=== PATIENT | male | born 1970 | race Caucasian/White ===

== ENCOUNTER 2017-01-22 08:20 | Day surgery (SDC) | payer OTHER ==
--- NOTE | 2017-01-17 14:35 | HISTORY AND PHYSICAL E ---
History and Physical NAME: BRADFORD GILL : 1970 AGE: 47Y ADMITTED: 01/22/2017 ROOM: HISTORY: The patient presented with abdominal pain, history of hiatus hernia. The patient admitted for upper endoscopy. PAST SURGICAL HISTORY: The patient has a history of right shoulder surgery, right knee and right hand. He did have colonoscopy in 1999 for anemia and bleeding which was negative. REVIEW OF SYSTEMS: CARDIAC: Negative. RESPIRATORY: Negative. ENDOCRINE: Negative. GASTROINTESTINAL: Abdominal pain. ONCOLOGY/HEMATOLOGY: Anemia. FAMILY HISTORY: Father is alive. Mom is alive, she had CVA. PHYSICAL EXAMINATION: VITAL SIGNS: Blood pressure 120/80, pulse 80, respirations 18, temperature is 98. HEAD, EYES, EARS, NOSE AND THROAT: Normal. NECK: Neck is supple. LUNGS: Clear. ABDOMEN: Soft. NEUROLOGICAL: Exam negative. SOCIAL HISTORY: . Does not smoke. Drinks rarely. The patient was seen in the past and he did have upper GI showing small hiatus hernia and free flowing reflux. Patient endoscopy shows no H. pylori. He did have esophagitis, gastritis, duodenitis. Now, the patient has exacerbation of reflux. He has stopped taking his PPI. PLAN: We will proceed with gallbladder ultrasound and upper endoscopy and the patient was given renewal of Protonix. Gastroesophageal reflux, abdominal pain, hiatus hernia, rule out gallbladder disease. DICTATING PHYSICIAN: BROCK GARRISON M.D. [id number] PHY#: [id number] ID: [id number] JOB#: [id number] ACCT: [id number] cc:[facility] BROCK GARRISON M.D. >
[~2017-01-22 08:20] MED LIST: EPINEPHRINE INJ 1 MG/10 ML DISP.SYRIN ONE; FENTANYL CITRATE INJ/PF 100 MCG/2 ML AMPUL ONE; FLUMAZENIL INJ 0.5 MG/5 ML VIAL IV ONE; GLYCOPYRROLATE INJ 0.4 MG/2 ML VIAL ONE; NALOXONE HCL INJ/PF 0.4 MG/1 ML SDV ONE; ONDANSETRON HCL INJ/PF 4 MG/2 ML SDV ONE
[2017-01-22] MEDS: MIDAZOLAM 2 MG/2 ML INJ ONE ×2 (08:55→09:00)
[2017-01-22 10:06] LABS: ABSOLUTE BASOPHILS # (AUTO) 0.1 10^3/uL (0.0-0.2); ABSOLUTE EOSINOPHILS # (AUTO) 0.2 10^3/uL (0.0-0.6); ABSOLUTE LYMPHOCYTES (AUTO) 1.5 10^3/uL (0.5-4.7); ABSOLUTE MONOCYTES (AUTO) 0.5 10^3/uL (0.1-1.4); ABSOLUTE NEUT (AUTO) 2.9 10^3/uL (1.7-8.2); BASOPHILS % (AUTO) 1.6 % (0-2); EOSINOPHILS % (AUTO) 3.5 % (0-6); HEMATOCRIT 34.4 % (37.9-51.0); HGB HCT DIFFERENCE -1.4; LYMPHOCYTES % (AUTO) 29.5 % (13-45); MEAN CORPUSCULAR HEMOGLOBIN 22.1 pg (27.0-33.4); MEAN CORPUSCULAR VOLUME 69 fl (80-97); MONOCYTES % (AUTO) 9.4 % (3-13); RED BLOOD COUNT 4.97 10^6/uL (4.35-5.55); RED CELL DISTRIBUTION WIDTH 15.4 % (11.5-14.0); WHITE BLOOD COUNT 5.2 10^3/uL (4.0-10.5)
[2017-01-22 10:13] VITALS: BP 105/59
[2017-01-22 10:34] LABS: ALANINE AMINOTRANSFERASE 38 U/L (21-72); ALBUMIN 3.7 g/dL (3.5-5.0); ALKALINE PHOSPHATASE 44 U/L (38-126); ANION GAP 7 (5-19); ASPARTATE AMINO TRANSFERASE 33 U/L (17-59); BILIRUBIN,DIRECT 0.3 mg/dL (0.0-0.4); BILIRUBIN,TOTAL 0.9 mg/dL (0.2-1.3); BLOOD UREA NITROGEN 13 mg/dL (7-20); CALCIUM 8.9 mg/dL (8.4-10.2); CARBON DIOXIDE 25 mmol/L (22-30); CHLORIDE 105 mmol/L (98-107); CREATININE RESULT 0.75 mg/dL (0.52-1.25); GLUCOSE 126 mg/dL (75-110); POTASSIUM 4.2 mmol/L (3.6-5.0); SODIUM 137.4 mmol/L (137-145); TOTAL PROTEIN 6.5 g/dL (6.3-8.2)
--- NOTE | 2017-01-22 11:54 | DISCHARGE SUMMARY E ---
Discharge Summary NAME: BRADFORD GILL : 1970 AGE: 47Y ADMITTED: 01/22/2017 DISCHARGED: 01/22/2017 01/22/2017 SUMMARY: This 47-year-old young male presented with exacerbation of reflux. The patient's upper endoscopy shows inlet patches consistent with reflux, some mild erythema over the vocal cords, and the GE junction at 38 cm with no stricture and mild esophagitis, mild gastritis, mild duodenitis. DISCHARGE PLAN: The patient is to continue low-fat diet, avoid food 3 hours prior to bedtime, elevate the head of the bed 6 inches. I am going to repeat his CBC. Continue Protonix. The patient is to see us in the office in the next few days. I will obtain chem profile as well to evaluate the liver functions. DICTATING PHYSICIAN: BROCK GARRISON M.D. [id number] PHY#: [id number] ID: [id number] JOB#: [id number] ACCT: [id number] cc:[facility] BROCK MÉNDEZ M.D. >
--- NOTE | 2017-01-22 11:55 | OPERATIVE REPORT E ---
Operative Report NAME: BRADFORD GILL : 1970 AGE: 47Y DATE OF SURGERY: 01/22/2017 ROOM: PREOPERATIVE DIAGNOSIS: Exacerbation of gastroesophageal reflux disease. POSTOPERATIVE DIAGNOSES: 1. Esophagitis, mild. 2. Gastritis, mild. 3. Duodenitis, mild. PROCEDURE: Esophagoscopy, gastroscopy, duodenoscopy. SURGEON: BROCK GARRISON M.D. ANESTHESIA: Versed 3 mg and Fentanyl 100 mcg. TISSUE REMOVED OR ALTERED: Gastric biopsy for H. pylori. DESCRIPTION OF PROCEDURE: The baby scope passed under guided vision with no difficulty. Esophagoscopy: Junction at 38 cm. Mild esophagitis. No stricture. The distal esophagus showed some mild erythema with no stricture, no malignancy. Gastroscopy: Mild gastritis, biopsy obtained. Duodenoscopy: Mild duodenitis. No ulcers. The scope was withdrawn from duodenum into the stomach. The cardia and the fundus were visualized in retroflexed position and show no abnormalities. The distal esophagus again shows some esophagitis. There was superficial inlet lesions in the proximal esophagus consistent with reflux. There was mild erythema over the vocal cords consistent with reflux. The inlet patches and the vocal cord erythema are consistent with esophagitis and reflux. The patient tolerated the procedure well and was discharged to his room in stable condition. DICTATING PHYSICIAN: BROCK GARRISON M.D. [id number] [facility]#: [id number] ID: [id number] JOB#: [id number] ACCT: [id number] cc:[facility], [facility] BROCK MÉNDEZ M.D. >
== END 2017-01-22 10:10 | disposition home or self-care (01) ==
LOC: END 08:20
PROVIDERS: ATTEND Specialist
PROC: 0DB68ZX Excision of Stomach, Via Natural or Artificial Opening Endoscopic, Diagnostic (ICD-10-PCS; principal; 2017-01-22 09:00)
DX: K21.0 Gastro-esophageal reflux disease with esophagitis (principal); K31.9 Disease of stomach and duodenum, unspecified; K29.80 Duodenitis without bleeding
CPT/HCPCS: 43239; 36415; 85025; 80053; 88342 ×2; 88305 ×2; J2250; J3010; J0171; J2310; J2405; J3490